=== PATIENT | male | born 1930 | race Caucasian/White ===

== ENCOUNTER 2018-03-03 11:25 | Emergency (ER) | payer OTHER ==
[2018-03-03 11:33] VITALS: BP 116/74
[2018-03-03] MEDS ORDERED: IPRATROPIUM/ALBUTEROL 3 ML DEYVIAL IH ONE (13:02)
--- NOTE | 2018-03-03 13:05 | EDPHY ---
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 Onset of cough 2 weeks ago. He has been treated with 2 different courses of antibiotics in the past 2 weeks, without change in cough. The cough is occasional and is productive of yellowish phlegm. No associated fever. Onset of sore throat yesterday. The sore throat is moderate and increases with swallowing. He also is scheduled to have a dental extraction of a left upper molar in 3 days and is concerned that he may have a dental infection. REVIEW OF SYSTEMS: complete 10 point ROS negative except at noted in the HPI - Personal History Current Tetanus/Diphtheria Vaccine: No Current Tetanus Diphtheria and Acellular Pertussis (TDAP): No - Medical/Surgical History Hx Asthma: No Hx Chronic Respiratory Disease: Yes Hx Diabetes: No Hx Cardiac Disease: No Hx Renal Disease: No Hx Cirrhosis: No Hx Alcoholism: No Hx HIV/AIDS: No Hx Splenectomy or Spleen Trauma: No Other PMH: PMH: PROSTATE CA,(Chemo) GLAUCOMA,EMPHYSEMA,BACK PROBLEMS. PSH: NONE - Social History Smoking Status: Former smoker - Physical Exam Exam: General Appearance: Alert, pleasant, well-appearing Eyes: Pupils equal and round, no conjunctival injection ENT, Mouth: Oral thrush, no gum swelling or dental tenderness Neck: Normal inspection, no adenopathy Respiratory: Scattered expiratory wheezing Cardiovascular: Regular rate and rhythm Gastrointestinal: Abdomen is soft and nontender Neurological: A&O, nonfocal, normal gait Skin: Warm and dry Extremities: Normal inspection Psychiatric: Mood and affect normal Constitutional: Initial Vital Signs Temperature (C) 36.7 C 03/03/18 11:30 Heart Rate 88 03/03/18 11:30 Respiratory Rate 18 03/03/18 11:30 Blood Pressure 116/74 03/03/18 11:30 O2 Sat (%) 89 L 03/03/18 11:30 O2 Delivery Mode Room Air Allergies/Adverse Reactions: No Known Allergies Allergy (Unverified 03/04/18 14:16) Home Medications: Medication Instructions Recorded Brimonidine/Timolol [Combigan (*)] 1 drop RTEYE 1200,2200 04/18/14 Dutasteride [Avodart 0.5 MG (*)] 0.5 mg PO HS 04/18/14 Herbals/Supplements -Info Only 1 ea PO DAILY 04/18/14 Latanoprost 0.005% [Xalatan 0.005% 1 drops EACHEYE HS 04/18/14 (*)] Polyethylene Glycol 3350 [Miralax 17 gm PO DAILY PRN 04/18/14 17 gm (*)] Nicotine Polacrilex [Nicorette gum 4 mg BC PRN PRN 05/21/14 (*)] Nystatin Susp [Mycostatin Oral 5 ml MM Q6 #480 ml 03/03/18 Liquid] Nexium 03/04/18 Medical Decision Making - Diagnostics Imaging Results: CXR: pulmonary fibrosis, no acute infiltrate Imaging: I viewed and interpreted images myself ED Course/Re-evaluation: This patient presents with a productive cough, most likely related to bronchospasm. Oxygen saturation 89% on room air. He is not short of breath and I suspect that this oxygen saturation is in the usual range for him. Chest x-ray reveals pulm fibrosis, no evidence of pneumonia. DuoNeb given. Lungs CTA after duoneb. There is no evidence of dental infection on exam. However he has oral thrush, likely related to recent antibiotics. Rx for albuterol inhaler and nystatin given. f/u PCP. Differential Diagnosis: includes though not limited to pneumonia, dental infection, strep throat, acute hypoxia - Data Points Medications Given: Discontinued Medications Albuterol/Ipratropium (Duoneb) 3 ml IH EDNOW ONE Stop: 03/03/18 13:03 Last Admin: 03/03/18 13:10 Dose: 3 ml Departure - Departure Disposition: Home, Routine, Self-Care Clinical Impression: Bronchospasm with bronchitis, acute, Oral thrush Condition: Good Instructions: Oral Candidiasis (ED), Bronchospasm (ED) Referrals: Bethanie Marvin MD [Primary Care Provider] - 5-7 days, call for appt. Prescriptions: Nystatin Susp [Mycostatin Oral Liquid] 5 ml MM Q6 #480 ml
--- NOTE | 2018-03-03 17:46 | ASDISCHSUM ---
Discharge Information Plan Status:Home with No Needs Medically Cleared to Leave: Discharge Date:03/03/2018 04:06 PM CM D/C Disposition:Home, Routine, Self-Care ADT D/C Disposition:Home, Routine, Self-Care Projected Discharge Date:03/03/2018 04:06 PM Transportation at D/C:Taxicab Discharge Delay Reason: Follow-Up Date:03/03/2018 04:06 PM Discharge Slot: Final Diagnosis: Placement Information Patient Contact Information Contact Name:MAXIMINO Relationship: Address:[address] City:[place] Alternate Phone: [facility]/Zip Code:[place] [address] Email: Financial Information Financial Class:Medicare Primary Plan Desc:MEDICARE OUTPATIENT Primary Plan Number:[id number] Secondary Plan Desc:[facility] Secondary Plan Number:[id number] Assessment Information [facility] CM Progress Note CM Note CM Note Notes: Pt presented to the ED through triage with his , Dominga ([phone]) for difficulty swallowing and having a cough. ED RN alerted CM re: concerns for patient's living situation. Pt lives in private home alone and per Dominga, pt has a habit of hoarding and the house is rather unkempt and possibly unsafe and unsanitary for pt to continue to live in. Dominga said pt also has had frequent falls recently and she is concerned pt can't even get around his house safely. Pt is able to ambulate with a cane. Spoke with pt and Dominga and she said she had to move out of the house for her own health. Dominga says she has been on the wait list for [facility] but hopes to be able to give her spot to [facility] if and when a spot becomes available. Lucien has been very resistant to having people come into his house to assist with cleaning, home care, etc. and only allows her and other close family members into the home. Pt is also very resistant to the idea of moving into an independent or assisted living apartment. Pt's PCP is Dr Bethanie Marvin and he has an appt this upcoming week and has already scheduled a ride through [employer] to get there. This CM to call Dr Marvin's office and relay concerns to the career technical supervisor and/or [employer]. There was mention and concerns for pt's cognitive status and if patient is showing signs of dementia, short term memory loss, etc. This CM called [facility] and filed a report for concerns related to self-neglect and unsafe living conditions. Pt was discharged home in a cab with Beto accompanying him to stop at [facility] and fill his prescriptions first. CM available for further assistance if needed. Date Signed: 03/03/2018 05:44 PM Electronically Signed By:Emerald Foster RN Intervention Information Intervention Type:Adult Protective Services Date of Service:03/03/2018 05:22 PM Patient Type:Emergency Room Staff Member:ELISEO Foster, Emerald Hours:0.25 Discipline:Grade Setter Severity: Comment:Filed report re: concerns for pt's uns afe living environment, hoarding, frequent falls
== END 2018-03-03 16:06 | disposition home or self-care (01) ==
DX: J20.9 Acute bronchitis, unspecified (principal); B37.0 Candidal stomatitis; Z85.46 Personal history of malignant neoplasm of prostate; Z87.891 Personal history of nicotine dependence

== ENCOUNTER 2018-03-04 14:09 | Emergency (ER) | payer OTHER ==
[2018-03-04 14:21] VITALS: BP 131/79
--- NOTE | 2018-03-04 15:16 | EDPHY ---
H & P Time Seen by Provider: 03/04/18 14:56 HPI/ROS: HPI Continued sore throat, history of thrush, seen here yesterday. 87-year-old male by private vehicle. This patient was seen in our emergency department yesterday with complaint of sore throat and continued cough. He had developed thrush secondary to multiple courses of antibiotics to treat an ongoing chronic cough. His chest x-ray did not show evidence of pneumonia or other acute pathology. He was prescribed nystatin for his thrush and discharged with instructions to follow up with his primary care physician early this coming week. He presents back to the emergency department concerned that the nystatin mouthwash has not been working. He states that he thinks he had a fever of 100.7 this morning which then dropped to 100.2. He call the office of his primary care physician, Dr. Marvin and was told to come to the emergency department to be evaluated. ROS: Constitutional: As above, no chills. No weakness. Eyes: No discharge. No changes in vision. ENT: As above. No nasal congestion or rhinorrhea. Respiratory: As above. No shortness of breath. Cardiac: No chest pain, no palpitations. Gastrointestinal: No abdominal pain, no vomiting, no diarrhea. Genitourinary: No hematuria. No dysuria or increased frequency with urination. Musculoskeletal: No back pain. No neck pain. No myalgias or arthralgias. Skin: No rashes. Neurological: No headache. No focal weakness or altered sensation. Past medical history: Prostate cancer with chemotherapy, glaucoma, chronic back problems, emphysema. Social history: He is . Currently here by himself. Former smoker. Physical Exam: General Appearance: Alert, no distress. This patient is responding to questions appropriately and in full sentences. This patient appears well- hydrated and well-nourished. Eyes: Pupils equal and round no pallor or injection. No lid edema, erythema or injection. ENT, Mouth: Mucous membranes are moist. Oral thrush present. Mild diffuse pharyngeal erythema. No significant edema or swelling. No asymmetry suggestive of abscess. No exudates. No voice changes. No stridor. Respiratory: There are no retractions, lungs are clear to auscultation with good air movement bilaterally. Cardiovascular: Regular rate and rhythm. Holosystolic murmur with intermittent PVCs or PACs. Gastrointestinal: Abdomen is soft and nontender, no masses, bowel sounds normal. No focal tenderness at McBurney's point. No Deluna sign. Neurological: Motor sensory function is grossly intact. Cranial nerves are normal. Gait is baseline. He ambulates with a cane. Skin: Warm and dry, no rashes. Musculoskeletal: Neck is supple and nontender. Extremities are symmetrical. All joints range without pain or impingement. Psychiatric: No agitation. No depression. Database: EKG: Imaging: Procedures: Emergency department course: Medical records from his visit yesterday were reviewed. His lab work from visits to the [facility] were reviewed. Vital signs at this time are normal. He is afebrile. I explained to him that he needed to give the nystatin mouthwash more time to work. He does feel comfortable going home. He is asking for a medication for his sore throat. I will withhold steroids at this time secondary to the thrush and the potential for immune suppression. He declines narcotic pain medications. He states that he can take NSAIDs but does not do so frequently. He was given 600 mg of ibuprofen in the emergency department. He has a normal creatinine from January. Denies any history of peptic ulcer disease. I have instructed him on high-dose ibuprofen for the next 3 days only to be taken with meals. He has been instructed to continue his nystatin mouthwash to treat his thrush. He has been instructed to follow up with his primary care physician on Monday for re-evaluation. Return to emergency department precautions were thoroughly discussed with him. All of his questions were answered. He was discharged from the emergency department in good condition. Differential Diagnosis: The differential diagnosis on this patient includes but is not limited to thrush , chronic bronchitis, pharyngitis. Streptococcal pharyngitis, pneumonia, serious bacterial infection unlikely. This represents a partial list of diagnoses considered. These considerations are based on history, physical exam , past history, reassessment and diagnostic testing. Smoking Status: Former smoker Constitutional: Initial Vital Signs Temperature (C) 36.9 C 03/04/18 14:18 Heart Rate 84 03/04/18 14:18 Respiratory Rate 16 03/04/18 14:18 Blood Pressure 131/79 H 03/04/18 14:18 O2 Sat (%) 94 03/04/18 14:18 O2 Delivery Mode Room Air Allergies/Adverse Reactions: No Known Allergies Allergy (Unverified 03/04/18 14:16) Home Medications: Medication Instructions Recorded Brimonidine/Timolol [Combigan (*)] 1 drop RTEYE 1200,2200 04/18/14 Dutasteride [Avodart 0.5 MG (*)] 0.5 mg PO HS 04/18/14 Herbals/Supplements -Info Only 1 ea PO DAILY 04/18/14 Latanoprost 0.005% [Xalatan 0.005% 1 drops EACHEYE HS 04/18/14 (*)] Polyethylene Glycol 3350 [Miralax 17 gm PO DAILY PRN 04/18/14 17 gm (*)] Nicotine Polacrilex [Nicorette gum 4 mg BC PRN PRN 05/21/14 (*)] Nystatin Susp [Mycostatin Oral 5 ml MM Q6 #480 ml 03/03/18 Liquid] Nexium 03/04/18 Departure - Departure Disposition: Home, Routine, Self-Care Clinical Impression: Thrush, oral, Chronic bronchitis, Pharyngitis Condition: Good Instructions: Oral Candidiasis (ED), Pharyngitis (ED) Additional Instructions: Read and follow provided instructions. Follow-up with your primary care physician on Monday of this week as discussed. Take medication as prescribed for oral thrush. Ibuprofen dosin mg every 6 hours with meals for the next 3 days only. Take only as needed for pain. Ask your pharmacist for Advil liquid gels. You will take 3 of these 200 mg tablets at a time. Return to the emergency department without hesitation for worsening symptoms, persistent fever, worsening sore throat, any difficulty breathing or worsening cough or other serious concerns. Referrals: Bethanie Marvin MD [Primary Care Provider] - As per Instructions
== END 2018-03-04 15:00 | disposition home or self-care (01) ==
DX: J02.9 Acute pharyngitis, unspecified (principal); B37.0 Candidal stomatitis; J42 Unspecified chronic bronchitis; Z85.46 Personal history of malignant neoplasm of prostate; Z87.891 Personal history of nicotine dependence

== ENCOUNTER 2018-05-03 16:31 | Emergency (ER) | payer OTHER ==
--- NOTE | 2018-05-03 18:24 | EDPHY ---
HPI/HX/ROS/PE/MDM Narrative: CHIEF COMPLAINT: Swollen right leg HISTORY OF PRESENT ILLNESS: The patient is an 88 y/o male complaining of right leg swelling. He is being treated at the wound clinic for a wound on the front of his right calf. The wound was dressed but this morning, he noticed that it was more difficult to remove the tight pants he wears to sleep. He denies fevers, chills, shortness of breath or any other associated symptoms. No fever, chills, chest pain, shortness of breath, palpitations, vomiting, diarrhea, urinary complaints, headache, lightheadedness. REVIEW OF SYSTEMS: Aside from elements discussed in the HPI, a comprehensive 10-point review of systems was reviewed and is negative. PAST MEDICAL HISTORY: Prostate cancer, glaucoma, emphysema SOCIAL HISTORY: Lives in [place], , retired VITAL SIGNS: Reviewed by me GENERAL: Well-developed, well-nourished, resting comfortably in no respiratory distress. Alert, pleasant, conversive. HEENT: Atraumatic. Normal to visual inspection EXTREMITIES: 3cm open abrasion to the front of the right stone with granulation tissue. Surrounding erythema. No edema, no warmth, no active bleeding. Range of motion is normal throughout. Calf compartment is soft. Negative Homans. NEURO: Alert and oriented. SKIN: Warm and dry, no rash. PSYCHIATRIC: Normal mentation, no agitation. ED Course: Ultrasound: Right leg ultrasound was obtained. The radiologist interpretation is negative for DVT. I discussed the ultrasound findings with the patient. The patient presents with a swollen right leg. He has an open abrasion with surrounding erythema. On exam, it is not warm or swollen. Plan for ultrasound of the right leg. 8:00 PM - Ultrasound does not show DVT. This patient can safely follow up with the wound clinic. He agrees to this course of action. MDM: Differential diagnosis for the patient's primary complaint of leg swelling was considered including but not limited to cellulitis, hypoalbuminemia, congestive heart failure, cor pulmonale, chronic venous stasis and DVT. - Data Points Imaging Results: Imaging Impressions Extremity Venous Study 05/03/18 18:02 Impression: Negative for right lower extremity DVT. Findings and recommendations discussed with Mackenzie Hollingsworth MD at 1940 hour, . Imaging: Discussed imaging studies w/ call center agent Radiologist General Time Seen by Provider: 05/03/18 18:00 Initial Vital Signs: Initial Vital Signs Temperature (C) 36.5 C 05/03/18 16:41 Heart Rate 80 05/03/18 16:41 Respiratory Rate 16 05/03/18 16:41 Blood Pressure 163/92 H 05/03/18 16:41 O2 Sat (%) 93 05/03/18 16:41 O2 Delivery Mode Room Air Allergies/Adverse Reactions: No Known Allergies Allergy (Verified 05/03/18 16:40) Home Medications: Medication Instructions Recorded Brimonidine/Timolol [Combigan (*)] 1 drop RTEYE 1200,2200 04/18/14 Dutasteride [Avodart 0.5 MG (*)] 0.5 mg PO HS 04/18/14 Herbals/Supplements -Info Only 1 ea PO DAILY 04/18/14 Latanoprost 0.005% [Xalatan 0.005% 1 drops EACHEYE HS 04/18/14 (*)] Polyethylene Glycol 3350 [Miralax 17 gm PO DAILY PRN 04/18/14 17 gm (*)] Nicotine Polacrilex [Nicorette gum 4 mg BC PRN PRN 05/21/14 (*)] Nystatin Susp [Mycostatin Oral 5 ml MM Q6 #480 ml 03/03/18 Liquid] Nexium 03/04/18 Departure - Departure Disposition: Home, Routine, Self-Care Clinical Impression: Right leg swelling Condition: Good Instructions: Leg Edema (ED) Additional Instructions: 1. Please follow up with the wound care as directed. 2. Use acetaminophen as directed on the label for pain if desired. 3. Return to the emergency department for any worsening of condition. Referrals: Bethanie Marvin MD [Primary Care Provider] - As per Instructions Report Scribed for: Mackenzie Hollingsworth Report Scribed by: Eveline Vieira Date of Report: 05/03/18 Time of Report: 18:27 Physician Review and Approval Statement: Portions of this note were transcribed by a medical intern. I personally performed a history, physical exam, medical decision making, and confirmed accuracy of information the transcribed note.
[2018-05-03 20:16] VITALS: BP 135/85
== END 2018-05-03 20:16 | disposition home or self-care (01) ==
DX: R22.41 Localized swelling, mass and lump, right lower limb (principal); Z85.46 Personal history of malignant neoplasm of prostate

== ENCOUNTER → 2018-05-24 | Outpatient (CLI) | payer OTHER | LOC: FIMAGING 12:51 | PROVIDERS: ATTEND Internal Medicine Hematology & Oncology | DX: R91.1 Solitary pulmonary nodule (principal); I51.7 Cardiomegaly ==

== ENCOUNTER 2018-07-04 14:31 | Emergency (ER) | payer OTHER ==
[2018-07-04 14:40] VITALS: BP 133/74
--- NOTE | 2018-07-04 15:03 | EDPHY ---
H & P Stated Complaint: pain in mouth Time Seen by Provider: 07/04/18 14:50 HPI/ROS: CHIEF COMPLAINT: Painful sore in mouth HISTORY OF PRESENT ILLNESS: The patient is an 88-year-old man who comes to the emergency department complaining of a painful sore on the mucosal aspect of his right cheek. He states that it is been present for about 2 weeks. It only bothers him when he salty foods. It does not bother him at baseline. He does not remember biting it or other specific trauma. No swelling or erythema. No drainage. Patient states that his symptoms are similar to last year when he had a candidal infection in his mouth after taking antibiotics. He has not had antibiotics recently. Severity: Mild Modifying factors: Salty food REVIEW OF SYSTEMS: Constitutional: denies: chills, fever, recent illness, recent injury EENTM: See HPI Respiratory: denies: cough, shortness of breath Cardiac: denies: chest pain, irregular heart rate, lightheadedness, palpitations Gastrointestinal/Abdominal: denies: abdominal pain, diarrhea, nausea, vomiting, blood streaked stools Genitourinary: denies: dysuria, frequency, hematuria, pain Musculoskeletal: denies: joint pain, muscle pain Skin: denies: lesions, rash, jaundice, bruising Neurological: denies: headache, numbness, paresthesia, tingling, dizziness, weakness Hematologic/Lymphatic: denies: blood clots, easy bleeding, easy bruising Immunologic/allergic: denies: HIV/AIDS, transplant 10 systems reviewed and negative except as noted EXAM: GENERAL: Well-appearing, well-nourished and in no acute distress. HEAD: Atraumatic, normocephalic. EYES: Pupils equal round and reactive to light, extraocular movements intact, sclera anicteric, conjunctiva are normal. ENT: TMs normal, nares patent, small linear wound to right anterior cheek appears consistent with oral trauma such as biting your cheek. NECK: Normal range of motion, supple without lymphadenopathy or JVD. LUNGS: Breath sounds clear to auscultation bilaterally and equal. No wheezes rales or rhonchi. HEART: Regular rate and rhythm without murmurs, rubs or gallops. ABDOMEN: Soft, nontender, normoactive bowel sounds. No guarding, no rebound. No masses appreciated. BACK: No CVA tenderness, no spinal tenderness, step-offs or deformities EXTREMITIES: Normal range of motion, no pitting or edema. No clubbing or cyanosis. NEUROLOGICAL: Cranial nerves II through XII grossly intact. Normal speech, normal gait. 5/5 strength, normal movement in all extremities, normal sensation , normal reflexes PSYCH: Normal mood, normal affect. SKIN: Warm, dry, normal turgor, no visible rashes or lesions. Source: Patient Exam Limitations: No limitations - Personal History Current Tetanus/Diphtheria Vaccine: Unsure Current Tetanus Diphtheria and Acellular Pertussis (TDAP): Unsure - Medical/Surgical History Hx Asthma: No Hx Chronic Respiratory Disease: Yes Hx Diabetes: No Hx Cardiac Disease: No Hx Renal Disease: No Hx Cirrhosis: No Hx Alcoholism: No Hx HIV/AIDS: No Hx Splenectomy or Spleen Trauma: No Other PMH: PMH: PROSTATE CA,(Chemo) GLAUCOMA,EMPHYSEMA,BACK PROBLEMS. PSH: NONE - Family History Significant Family History: No pertinent family hx - Social History Smoking Status: Former smoker Alcohol Use: None Constitutional: Initial Vital Signs Temperature (C) 37 C 07/04/18 14:37 Heart Rate 73 07/04/18 14:37 Respiratory Rate 16 07/04/18 14:37 Blood Pressure 133/74 H 07/04/18 14:37 O2 Sat (%) 96 07/04/18 14:37 O2 Delivery Mode Room Air Allergies/Adverse Reactions: No Known Allergies Allergy (Verified 07/04/18 14:36) Home Medications: Medication Instructions Recorded Brimonidine/Timolol [Combigan (*)] 1 drop RTEYE 1200,2200 04/18/14 Dutasteride [Avodart 0.5 MG (*)] 0.5 mg PO HS 04/18/14 Herbals/Supplements -Info Only 1 ea PO DAILY 04/18/14 Latanoprost 0.005% [Xalatan 0.005% 1 drops EACHEYE HS 04/18/14 (*)] Polyethylene Glycol 3350 [Miralax 17 gm PO DAILY PRN 04/18/14 17 gm (*)] Nicotine Polacrilex [Nicorette gum 4 mg BC PRN PRN 05/21/14 (*)] Nexium 03/04/18 Medical Decision Making ED Course/Re-evaluation: This does not look like a candidal infection on exam. It looks like mild oral trauma however it is been present for 2 weeks. I offered to treat with nystatin for now but recommended he follow up with oral surgery in the next few days to be evaluated for oral cancer. He does have a history of smoking. Patient just came from the ENTs office Dr. Huntley up stairs where she was looking at his ears. He and his son feel that they will be able to get back up to Dr. Huntley's office right now and have her take a look in his mouth. They declined prescriptions or further workup at this time. Differential Diagnosis: Partial list of the Differential diagnosis considered include but were not limited to; oral trauma, candidiasis, oral cancer and although unlikely based on the history and physical exam, I also considered salivary gland stone, abscess, dental infection. I discussed these differential diagnoses and the plan with the patient as well as the usual and expected course. The patient understands that the diagnosis is provisional and that in medicine we are not always correct and that further workup is often warranted. Usual and customary warnings were given. All of the patient's questions were answered. The patient was instructed to return to the emergency department should the symptoms at all worsen or return, otherwise to followup with the physician as we discussed. Departure - Departure Disposition: Home, Routine, Self-Care Clinical Impression: Ulcer (traumatic) of oral mucosa Condition: Fair Instructions: Mouth Care (ED) Referrals: Bethanie Marvin MD [Primary Care Provider] - As per Instructions Subha Carpenter MD [Medical Doctor] - 2-3 days, call for appt.
== END 2018-07-04 15:32 | disposition home or self-care (01) ==
DX: K12.1 Other forms of stomatitis (principal); Z85.46 Personal history of malignant neoplasm of prostate

== ENCOUNTER 2018-08-08 14:41 | Inpatient (IN) | payer OTHER ==
[2018-08-08] MEDS ORDERED: ACETAMINOPHEN 325 MG TAB PO ONE (16:33)
--- NOTE | 2018-08-08 17:00 | EDPHY ---
H & P Stated Complaint: R leg possible infection Time Seen by Provider: 08/08/18 16:32 HPI/ROS: CHIEF COMPLAINT: Cellulitis HISTORY OF PRESENT ILLNESS: 88-year-old male presents with right lower extremity cellulitis. He is being followed in wound care for a right lower extremity open wound. Last night he developed a low-grade fever of 99.8, associated with increasing right lower extremity pain. No other associated symptoms. He was seen in [facility] just prior to arrival and had obvious cellulitis. The wound was debrided and bandaged by Dr. Ayala. He presents now for admission and IV antibiotics. He originally injured his right lower extremity after a fall several months ago. REVIEW OF SYSTEMS: complete 10 point ROS reviewed and is negative except for the noted elements in the HPI - Personal History Current Tetanus/Diphtheria Vaccine: Yes Current Tetanus Diphtheria and Acellular Pertussis (TDAP): Yes - Medical/Surgical History Hx Asthma: No Hx Chronic Respiratory Disease: Yes Hx Diabetes: No Hx Cardiac Disease: No Hx Renal Disease: No Hx Cirrhosis: No Hx Alcoholism: No Hx HIV/AIDS: No Hx Splenectomy or Spleen Trauma: No Other PMH: PMH: PROSTATE CA,(Chemo) GLAUCOMA,EMPHYSEMA,BACK PROBLEMS. PSH: NONE - Social History Smoking Status: Former smoker - Physical Exam Exam: General Appearance: Alert, pleasant, nontoxic-appearing Eyes: Pupils equal and round, no conjunctival pallor ENT, Mouth: Mucous membranes moist Neck: Normal inspection Respiratory: Lungs are clear to auscultation Cardiovascular: Regular rate and rhythm Gastrointestinal: Abdomen is soft and nontender Neurological: A&O, nonfocal, normal gait Skin: Warm and dry Extremities: Right lower leg is bandaged, erythema extends proximally on the anterior aspect of the lower leg Psychiatric: Mood and affect normal Constitutional: Initial Vital Signs Temperature (C) 37.9 C 08/08/18 14:48 Heart Rate 107 H 08/08/18 14:48 Respiratory Rate 16 08/08/18 14:48 Blood Pressure 102/58 L 08/08/18 14:48 O2 Sat (%) 92 08/08/18 14:48 O2 Delivery Mode Room Air Allergies/Adverse Reactions: No Known Allergies Allergy (Verified 08/08/18 14:48) Home Medications: Medication Instructions Recorded Brimonidine/Timolol [Combigan (*)] 1 drop LEFTEYE DAILY 04/18/14 Herbals/Supplements -Info Only 1 ea PO DAILY 04/18/14 Latanoprost 0.005% [Xalatan 0.005% 1 drops EACHEYE HS 04/18/14 (*)] Polyethylene Glycol 3350 [Miralax 17 gm PO DAILY PRN 04/18/14 17 gm (*)] Nicotine Polacrilex [Nicorette gum 4 mg BC PRN PRN 05/21/14 (*)] Finasteride [Proscar 5 MG (*)] 5 mg PO HS 08/08/18 Medical Decision Making ED Course/Re-evaluation: This patient presents with cellulitis of the right lower extremity. I did not remove the bandage since he was just seen by wound care and Dr. Ayala. I reviewed a a photograph taken in the wound care clinic and it reveals obvious cellulitis. Does not meet SIRS criteria. Blood cultures were drawn and Ancef 1 g IV given for cellulitis. The hospitalist service was consulted for admission. Differential Diagnosis: Differential diagnosis includes though it is not limited to osteomyelitis, necrotizing fasciitis, abscess, neurovascular compromise. - Data Points Medications Given: Discontinued Medications Acetaminophen (Tylenol) 650 mg PO EDNOW ONE Stop: 08/08/18 16:34 Last Admin: 08/08/18 17:23 Dose: 650 mg Cefazolin Sodium/Dextrose (Ancef 1 Gm (Premix)) 50 mls @ 200 mls/hr IV EDNOW ONE PRN Reason: Protocol Stop: 08/08/18 17:10 Last Admin: 08/08/18 17:22 Dose: 50 mls Departure - Departure Disposition: [facility] Inpatient Acute Clinical Impression: Cellulitis Qualifiers: Site of cellulitis: extremity Site of cellulitis of extremity: lower extremity Laterality: right Qualified Code(s): L03.115 - Cellulitis of right lower limb Condition: Fair
[2018-08-08 17:23] LABS: PLATELET COUNT 169 10^3/uL (150-400)
[2018-08-08] MEDS ORDERED: ACETAMINOPHEN 325 MG TAB PO PRN (18:13)
[2018-08-08] MEDS ORDERED: oxyCODONE IR 5 MG TAB PO PRN (18:13)
[2018-08-08] MEDS ORDERED: HYDROmorphONE/DILAUDID 1 MG/ML INJ IVP PRN (18:13)
[2018-08-08] MEDS ORDERED: ONDANSETRON DISINTEGRATING 4 MG TAB PO PRN (18:13)
[2018-08-08] MEDS ORDERED: ONDANSETRON 4 MG/2 ML VIAL IVP PRN (18:13)
[2018-08-08] MEDS ORDERED: PROMETHAZINE HCL 25 MG/ML INJ IVP PRN (18:13)
[2018-08-08] MEDS ORDERED: NICOTINE POLACRILEX 2 MG GUM B PRN (18:13)
[2018-08-08] MEDS ORDERED: HYDROCODONE/APAP 5/325 TAB PO PRN (18:13)
[2018-08-08] MEDS ORDERED: POLYETHYLENE GLYCOL 3350 17 GM PKT PO PRN (18:15)
[2018-08-08] MEDS: LATANOPROST 0.005% 2.5 ML OPHT DROPS EACHEYE SCH (21:13)
[2018-08-08] MEDS: FINASTERIDE 5 MG TAB PO SCH (21:13)
--- NOTE | 2018-08-08 21:27 | PDGENHP ---
History and Physical - Chief Complaint leg wounds - History of Present Illness 88 yo M with PMH of COPD, CAD, prostate and lung cancer presenting with worsening RLE wounds and associated cellulitis. Patient has been followed closely at the wound clinc for chronic BLE venous stasis wounds, and in discussion with Dr. Dasilva the wounds had been stable and even appearing to heal progressively until this week when they were noted to be increasingly red and weeping on the right lower extremity. He was sent to the ER for further evaluation. At the time of my evaluation, he notes he has had low grade fever at home up to 99.8 which is unusual for him. He has not had rigors or shaking chills. He has not had cp, sob, n/v/d or other associated sxs. He notes that leg is not very painful and that this has happened in the past as well when the wounds are infected. He does not believe he did anything different in terms of care of the wound and has been compliant with dressing changes etc. History Information - Allergies/Home Medication List Allergies/Adverse Reactions: No Known Allergies Allergy (Verified 08/08/18 14:48) Home Medications: Brimonidine/Timolol [Combigan (*)] 1 drop LEFTEYE DAILY 04/18/14 [Last Taken ] Herbals/Supplements -Info Only 1 ea PO DAILY 04/18/14 [Last Taken 08/08/18] Latanoprost 0.005% [Xalatan 0.005% (*)] 1 drops EACHEYE HS 04/18/14 [Last Taken 08/07/18] Polyethylene Glycol 3350 [Miralax 17 gm (*)] 17 gm PO DAILY PRN 04/18/14 [Last Taken 08/07/18] Nicotine Polacrilex [Nicorette gum (*)] 4 mg BC PRN PRN 05/21/14 [Last Taken Unknown] Finasteride [Proscar 5 MG (*)] 5 mg PO HS 08/08/18 [Last Taken 08/07/18] I have personally reviewed and updated: family history, medical history, social history, surgical history - Past Medical History coronary artery disease, cancer (prostate and lung), COPD, GERD Additional medical history: spinal stenosis. ILD. glaucoma. venous stasis ulcers - Surgical History Reports: no pertinent surgical hx - Family History Positive for: non-pertinent - Social History Smoking Status: Former smoker Alcohol Use: Rarely Drug Use: None Review of Systems Review of Systems: ROS: 10pt was reviewed & negative except for what was stated in HPI & below Physical Exam Physical Exam: Temp Pulse Resp BP Pulse Ox 36.5 C 90 16 122/85 H 90 L 08/08/18 20:13 08/08/18 20:13 08/08/18 20:13 08/08/18 20:13 08/08/18 20:13 O2 (L/minute) 1 Constitutional: no apparent distress, chronically ill appearing Eyes: PERRL, anicteric sclera Ears, Nose, Mouth, Throat: moist mucous membranes, hearing normal, poor dentition Cardiovascular: regular rate and rhythym, No edema Respiratory: no respiratory distress, no rales or rhonchi, clear to auscultation Gastrointestinal: normoactive bowel sounds, soft, non-tender abdomen Genitourinary: no bladder tenderness Skin: erythema (to mid calf), other (weeping wound) Musculoskeletal: no muscle tenderness Neurologic: AAOx3 Psychiatric: interacting appropriately, not anxious, not encephalopathic Lab Data & Imaging Review 08/08/18 17:02 08/08/18 17:02 WBC 10.54 10^3/uL (3.80-9.50) H 08/08/18 17:02 RBC 4.40 10^6/uL (4.40-6.38) 08/08/18 17:02 Hgb 14.2 g/dL (13.7-17.5) 08/08/18 17:02 Hct 41.3 % (40.0-51.0) 08/08/18 17:02 MCV 93.9 fL (81.5-99.8) 08/08/18 17:02 MCH 32.3 pg (27.9-34.1) 08/08/18 17:02 MCHC 34.4 g/dL (32.4-36.7) 08/08/18 17:02 RDW 12.9 % (11.5-15.2) 08/08/18 17:02 Plt Count 169 10^3/uL (150-400) 08/08/18 17:02 MPV 9.9 fL (8.7-11.7) 08/08/18 17:02 Neut % (Auto) 84.5 % (39.3-74.2) H 08/08/18 17:02 Lymph % (Auto) 6.9 % (15.0-45.0) L 08/08/18 17:02 [place] % (Auto) 7.1 % (4.5-13.0) 08/08/18 17:02 Eos % (Auto) 0.8 % (0.6-7.6) 08/08/18 17:02 Baso % (Auto) 0.4 % (0.3-1.7) 08/08/18 17:02 Nucleat RBC Rel Count 0.0 % (0.0-0.2) 08/08/18 17:02 Absolute Neuts (auto) 8.91 10^3/uL (1.70-6.50) H 08/08/18 17:02 Absolute Lymphs (auto) 0.73 10^3/uL (1.00-3.00) L 08/08/18 17:02 Absolute Monos (auto) 0.75 10^3/uL (0.30-0.80) 08/08/18 17:02 Absolute Eos (auto) 0.08 10^3/uL (0.03-0.40) 08/08/18 17:02 Absolute Basos (auto) 0.04 10^3/uL (0.02-0.10) 08/08/18 17:02 Absolute Nucleated RBC 0.00 10^3/uL (0-0.01) 08/08/18 17:02 Immature Gran % 0.3 % (0.0-1.1) 08/08/18 17:02 Immature Gran # 0.03 10^3/uL (0.00-0.10) 08/08/18 17:02 VBG Lactic Acid 1.7 mmol/L (0.7-2.1) 08/08/18 17:35 Sodium 134 mEq/L (135-145) L 08/08/18 17:02 Potassium 4.3 mEq/L (3.3-5.0) 08/08/18 17:02 Chloride 99 mEq/L (97-110) 08/08/18 17:02 Carbon Dioxide 22 mEq/l (22-31) 08/08/18 17:02 Anion Gap 13 mEq/L (6-14) 08/08/18 17:02 BUN 18 mg/dL (7-23) 08/08/18 17:02 Creatinine 1.2 mg/dL (0.7-1.3) 08/08/18 17:02 Estimated GFR 57 08/08/18 17:02 Glucose 114 mg/dL (70-100) H 08/08/18 17:02 Calcium 9.1 mg/dL (8.5-10.4) 08/08/18 17:02 Assessment & Plan Assessment: Cellulitis (Acute) 88 yo M with PMH of copd, cad and chronic venous stasis ulcers followed at wound clinic presenting with RLE cellulitis # RLE cellulitis: in the setting of underlying chronic venous stasis and chronic wounds, he has been seen by Dr. Ayala and Dr. Purvis and plan for now is to monitor with ancef in house, continued wound care. He is non toxic appearing and having relatively little systemic sxs at this time. # leukocytosis: in the setting of above and related to same, not currently meeting other sirs criteria, lactate wnl, will trend # COPD: without e/o acute exacerbation at this time, will monitor, continue home medications # hypoxia: mild 89-90% on RA, with underlying copd, ILD and lung cancer, will continue to monitor but suspect this is baseline # prostate cancer/lung cancer: followed by [facility], not contributing to acute presentation # CAD: without c/o chest pain or other sxs suggestive of acute issues, continue op medications # IP status, will require > 48 hours stay for eval/mgmt of above given severity of cellulitis sxs Patient new to my care. Old records reviewed and summarized as above, care plan reviewed with ER doctor, Dr. Ayala and DR. Purvis as above.
--- NOTE | 2018-08-08 21:39 | GCON ---
INFECTIOUS DISEASE CONSULTATION DATE OF CONSULTATION: 08/08/2018 REFERRING PHYSICIAN: Jessica Ayala MD REASON FOR CONSULTATION: Right lower extremity cellulitis. HISTORY OF PRESENT ILLNESS: The patient is an 88-year-old male with a past medical history of right lower extremity venous insufficiency and ulceration, as well as skin tear to the right lower extremit y sustained over the summer, who I am asked to see in consultation for a right lower extremity cellul itis. The patient notes that his wound had become progressively worse over the last few days, and enamorado d increasing redness associated with the right lower leg. Yesterday, he described a temperature in t he low 99-degree range. Today, this was around 99.6. He did not have chills or feel ill. He was ev aluated by Dr. Ayala and noted to have erythema around his wounds consistent with cellulitis promptin g his hospital admission. Cultures obtained in 2017 from a wound showed MSSA. The patient does not have any pain in his right thigh or inguinal region. He has not experienced nausea, vomiting, or ira rrhea. He denies recent antibiotic exposure. Evaluation in the emergency department revealed a whit e count of 10.5 with a left shift. He has been having [facility] w ith compression wraps. Given the above findings, I am now asked to assist in his ongoing management. PAST MEDICAL HISTORY: Prostate cancer, spinal stenosis, chronic venous insufficiency, skin tear to r ight lower extremity, emphysema, glaucoma. PAST SURGICAL HISTORY: Recent debridement of right lower extremity wound. CURRENT MEDICATIONS: Cefazolin 1 g IV x1, Lovenox 40 mg subcu daily, Mchenry as needed for pain, Prosc ar 5 mg p.o. at bedtime, Nicorette as needed, OxyIR as needed. ALLERGIES: Horse serum. SOCIAL HISTORY: Patient quit smoking many years ago. He continues to use Nicorette gum. Drinks alc ohol occasionally. No drug use history. FAMILY HISTORY: Noncontributory. REVIEW OF SYSTEMS: Outside that noted in the HPI, the remainder of a 10-system review is unremarkabl e. PHYSICAL EXAMINATION: VITAL SIGNS: Temperature 37.9, heart rate 86, respiratory rate 18, blood pres sure 119/60, oxygen saturation 92% on room air. GENERAL: Patient is well nourished and well develop ed, in no acute distress. He appears nontoxic. HEENT: There is no scleral icterus, conjunctival in jection, or conjunctival petechiae. Oropharynx shows moist mucous membranes with dentition in poor r epair. There is no nasal discharge. There is no tenderness over the sinuses. NECK: Supple without palpable lymphadenopathy or thyromegaly. CHEST: There are bilateral expiratory wheezes present. T here is occasional paroxysm of cough. CARDIOVASCULAR: Regular rate and rhythm without murmurs, gall ops, or rubs. ABDOMEN: Soft, nontender, nondistended. There is a palpable mass in the left upper q uadrant, which appears consistent with a lipoma. Bowel sounds are present. MUSCULOSKELETAL: Right lower extremity shows chronic venous insufficiency changes. There are several wounds over the anteri or stone with clean base and some fibrinous slough. There is erythema surrounding the wound bed exten ding proximally to below the knee with warmth and mild tenderness. There is a small wound over the r ight lateral foot with surrounding erythema. LYMPHATICS: No cervical or supraclavicular nodes. No lymphangitis in the right thigh or inguinal adenopathy. NEUROLOGIC: Patient is alert and interacts appropriately with the examiner. Cranial nerves 2 through 12 are grossly intact. Sensation is gross ly intact. Muscle tone and bulk are normal. SKIN: See musculoskeletal exam. No stigmata of endoca rditis. Skin is warm and dry to touch. LABORATORY DATA: White blood cell count 10.5, hematocrit 41.3, platelets 169, neutrophils 85%. Seru m creatinine 1.2, glucose 114, blood cultures x2 are pending. IMPRESSION: Right lower extremity cellulitis with chronic wounds over anterior stone after skin tear, with underlying venous insufficiency. Appearance most suggestive of beta-hemolytic streptococci, al though Staphylococcus aureus also a consideration. Chronic wounds do raise issue of potential for mo re mixed infection. Given clinical appearance and prior isolation of MSSA, will proceed with use of cefazolin and follow clinical response to above measures. RECOMMENDATIONS: 1. Cefazolin 1 g IV q.8 hours. 2. Elevate right lower extremity on 2 pillows. 3. Continue local wound care under supervision of Dr. Ayala. 4. Follow up blood cultures as available. 5. Follow clinical response to above measures over time. Thank you for this consultation. We will continue to follow the patient with you. /[id number]/MODL
[2018-08-09 05:06] LABS: PLATELET COUNT 159 10^3/uL (150-400)
[2018-08-09] MEDS ORDERED: CEPACOL LOZENGE PO PRN (06:09)
[2018-08-09] MEDS ORDERED: BISACODYL 10 MG SUPP PR PRN (06:10)
[2018-08-09] MEDS ORDERED: POLYETHYLENE GLYCOL 3350 17 GM PKT PO PRN (06:10)
[2018-08-09] MEDS ORDERED: MAGNESIUM HYDROXIDE 30 ML UDCUP PO PRN (06:10)
[2018-08-09] MEDS: ENOXAPARIN 40 MG/0.4 ML SYR SC SCH (08:55)
[2018-08-09] MEDS: SENNOSIDES/DOCUSATE SODIUM TAB PO SCH ×2 (08:55→20:31)
[2018-08-09] MEDS: BRIMONIDINE/TIMOLOL 5 ML OPHT.BTL LEFTEYE SCH (08:56)
--- NOTE | 2018-08-09 08:56 | SOAPPROG ---
SOAP Progress Note Assessment/Plan: Assessment: 88 year old w history of venous insufficiency and fall admitted yesterday for worsening cellulitus. (My full note is on the wound healing center visit 2017) I debrided the wounds yesterday. Will not likely need continued debridement Wound care Ancef Will follow S: Concerned that he had no idea that he was going to spend the night in the hospital and came unprepared. Overall feeling a touch better O: I did not take down the dressing but the erythema on the RLE is better defined and not spreading. Although darker, the streaks closer to his knee have resolved Plan: 08/09/18 08:55 08/09/18 09:02 Objective: Vital Signs Temp Pulse Resp BP Pulse Ox 36.5 C 84 18 119/63 92 08/09/18 08:00 08/09/18 08:00 08/09/18 08:00 08/09/18 08:00 08/09/18 08:00 Laboratory Results 08/09/18 04:42 08/09/18 04:42 08/08/18 08/09/18 08/10/18 05:59 05:59 05:59 Intake Total 400 Balance 400 ICD10 Worksheet Patient Problems: Problems Problem Status Onset Cellulitis Acute Bradycardia Acute
--- NOTE | 2018-08-09 12:28 | PCMIDPN ---
Assessment/Plan: # Right lower extremity cellulitis: Significant recession of erythema based on comparison to pictures. White count normalized. Clinical appearance most suggestive of Streptococcus --continue Ancef overnight --hope to transition to p.o. Tomorrow --continue elevation # venous insufficiency with chronic lower extremity wounds: Dr. Brown sutherland debrided wounds. Medication Cefazolin 1 g IV Q 8 Micro 08/08 blood cultures (2) pending Subjective: Patient reports decreased pain associated with his right foot. Denies side effects related to antibiotics, no diarrhea, itching, rash Objective: Vital Signs Temp Pulse Resp BP Pulse Ox 36.5 C 96 16 131/68 H 91 L 08/09/18 12:06 08/09/18 12:06 08/09/18 12:06 08/09/18 12:06 08/09/18 12:06 Laboratory Results 08/09/18 04:42 08/09/18 04:42 08/08/18 08/09/18 08/10/18 05:59 05:59 05:59 Intake Total 400 Balance 400 - Physical Exam General Appearance: alert, no apparent distress, non-toxic EENT: poor dentition, No thrush Respiratory: lungs clear, No accessory muscle use Cardiac/Chest: regular rate, rhythm Extremities: swelling (Mild bilateral lower extremity swelling right greater than left), erythema (Right: Faint erythema tracking anterior stone with significant recession from prior lines drawn. Irregular superficial wound anterior ankle and stone without purulence consistent with venous stasis ulcer) Peripheral Pulses: 2+: dorsalis-pedis (R), dorsalis-pedis (L) Abdomen: non-tender, soft Male Genitalia: No stevenson Skin: pallor, No rash Neuro/Psych: alert, normal mood/affect, oriented x 3 - Line/s PIV Lines: other (Left forearm), No drainage, No erythema - Time Spent With Patient Time Spent with Patient: greater than 35 minutes (Care coordinated with Dr. Jessica Ayala) Time Spent with Patient: Greater than 35 minutes spent on this patients care, greater than 50% of time spent counseling, educating, and coordinating care regarding the above mentioned plan. ICD10 Worksheet Patient Problems: Problems Problem Status Onset Cellulitis Acute Bradycardia Acute
--- NOTE | 2018-08-09 13:25 | ASMTCMCOM ---
CM Note CM Note Notes: Patient plan of care reviewed in rounds. Chart also reviewed. patient seen in wound care clinic. History of APS report filed in his chart on previous visit. Patient per PT needs skilled care. He has been reluctant in the past and not sure if he will be agreeable. On IV antibiotics for wound. Referrals placed in allscripts. Will attempt to provide him with pamphlets CM to follow. Plan: SNF versus [facility] Date Signed: 08/09/2018 01:25 PM Electronically Signed By:Ronda Herndon RN
--- NOTE | 2018-08-09 15:20 | PDMN ---
Medical Necessity Medical necessity: Per MD and MCG M-70; est los >2 mn for ongoing management and tx of worsening cellulitis secondary to peripheral venous insufficiency s/p OP debridement of wounds and recent fall; requiring surgical consult, ID consult , wound care consult, IV ABX and therapies; Comorbid advanced age
--- NOTE | 2018-08-09 15:53 | HOSPPROG ---
Hospitalist Progress Note Assessment/Plan: 88 yo M with PMH of copd, cad and chronic venous stasis ulcers followed at wound clinic presenting with RLE cellulitis. # RLE cellulitis: Not toxic/septic. Improving. Portal of entry is chronic LE wounds. No e/o deeper infection/abscess per wound care. - IV ancef, ID following - Follow cultures, exam - Wound care - Query whether he would be candidate for long-term suppressive antibiotics # Leukocytosis: Resolved. # Acute hypoxemic resp insufficiency: Requiring 1-2L NC. Has underlying COPD, ILD (no acute flare of either) and lung cancer so this is likely his baseline. Anticipate him needing supplemental O2 at dc. # Deconditioning/unsteady gait: Currently living alone, which seems unsafe - PT/OT # H/o prostate and lung cancer: Followed by [facility], not contributing to acute presentation # CAD: No anginal sxs, cont op meds Code: full Dispo: Switch to inpatient for ongoing need for IV antibiotics, unsafe to dc home. May need SNF. Subjective: Doing well. Right foot pain improved. No fevers, diarrhea. Objective: Vital Signs Temp Pulse Resp BP Pulse Ox 36.5 C 96 16 131/68 H 91 L 08/09/18 12:06 08/09/18 12:06 08/09/18 12:06 08/09/18 12:06 08/09/18 12:06 Laboratory Results 08/09/18 04:42 08/09/18 04:42 08/08/18 08/09/18 08/10/18 05:59 05:59 05:59 Intake Total 400 Balance 400 - Physical Exam Constitutional: no apparent distress, appears nourished, not in pain, other ( hard of hearing) Eyes: PERRL, anicteric sclera, EOMI Ears, Nose, Mouth, Throat: moist mucous membranes, hearing normal, ears appear normal, no oral mucosal ulcers Cardiovascular: regular rate and rhythym, no murmur, rub, or gallop Respiratory: no respiratory distress, no rales or rhonchi, clear to auscultation Gastrointestinal: normoactive bowel sounds, soft, non-tender abdomen, no palpable masses Genitourinary: no bladder fullness, no bladder tenderness, no renal bruits Skin: other (right foot/ankle wrapped with mild erythema extending within boundaries previously drawn) Musculoskeletal: full muscle strength, no muscle tenderness, normal joint ROM Neurologic: AAOx3, sensation intact bilaterally Psychiatric: interacting appropriately, not anxious, not encephalopathic, thought process linear ICD10 Worksheet Patient Problems: Problems Problem Status Onset Cellulitis Acute Bradycardia Acute
[2018-08-09] MEDS: FINASTERIDE 5 MG TAB PO SCH (20:30)
[2018-08-09] MEDS: LATANOPROST 0.005% 2.5 ML OPHT DROPS EACHEYE SCH (20:31)
[2018-08-09] MEDS ORDERED: CALCIUM CARBONATE 500 MG CHEWABLE TAB PO PRN (20:52)
--- NOTE | 2018-08-10 09:34 | PCMIDPN ---
Assessment/Plan: # Right lower extremity cellulitis: minimal residual erythema . Portal of entry venous stasis ulcer --okay to dc on PO Keflex 500mg PO TID x 1 week --continue wound care as outpatient # venous insufficiency with chronic lower extremity wounds: Dr. Ayala just debrided wounds. Medication Cefazolin 1 g IV Q 8h, #2 Micro 08/08 blood cultures (2) NGTD Subjective: feels well slept well last night minimal R leg pain wants to go home Objective: Vital Signs Temp Pulse Resp BP Pulse Ox 36.6 C 78 18 139/84 H 96 08/10/18 09:01 08/10/18 09:01 08/10/18 09:01 08/10/18 09:01 08/10/18 09:01 Laboratory Results 08/09/18 04:42 08/09/18 04:42 08/09/18 08/10/18 08/11/18 05:59 05:59 05:59 Intake Total 1500 100 Balance 1500 100 gen: elderly male NAD, cooperative HEENT: MMM no thrush Neck supple Pulm: breathing easy RLE : irregular wound R ankle, anterior mid stone with large about serosang discharge, significant periwound inflammation but not clearly cellulitic. Mid to upper stone - erythema has resolved. Minimal LE edema, scaly dry skin. For wound measurement see wound care note, patient examined w wound care team. Compression on LLE SKAGWAY, AxOx4 - Time Spent With Patient Time Spent with Patient: greater than 35 minutes Time Spent with Patient: Greater than 35 minutes spent on this patients care, greater than 50% of time spent counseling, educating, and coordinating care regarding the above mentioned plan. ICD10 Worksheet Patient Problems: Problems Problem Status Onset Cellulitis Acute Bradycardia Acute
[2018-08-10] MEDS: ENOXAPARIN 40 MG/0.4 ML SYR SC SCH (09:35)
[2018-08-10] MEDS: BRIMONIDINE/TIMOLOL 5 ML OPHT.BTL LEFTEYE SCH (09:37)
[2018-08-10] MEDS: SENNOSIDES/DOCUSATE SODIUM TAB PO SCH ×2 (09:39→20:53)
--- NOTE | 2018-08-10 10:42 | SOAPPROG ---
SOAP Progress Note Assessment/Plan: Assessment: 88 year old w history of venous insufficiency and fall admitted yesterday for worsening cellulitus. Wound care F/U wound healing center ABX per ID S: Erythema and pain improved O: From photo, erythema improved. overall wound appears better. Will still need diligent wound care to heal Plan: 08/09/18 08:55 08/09/18 09:02 08/10/18 10:40 Objective: Vital Signs Temp Pulse Resp BP Pulse Ox 36.6 C 78 18 139/84 H 96 08/10/18 09:01 08/10/18 09:01 08/10/18 09:01 08/10/18 09:01 08/10/18 09:01 Laboratory Results 08/09/18 04:42 08/09/18 04:42 08/09/18 08/10/18 08/11/18 05:59 05:59 05:59 Intake Total 1500 100 Balance 1500 100 ICD10 Worksheet Patient Problems: Problems Problem Status Onset Cellulitis Acute Bradycardia Acute
--- NOTE | 2018-08-10 11:12 | WOCRNPDOC ---
WOCRN Advanced Assessment Note - Skin Integrity Problem, Advanced Assess Right Calf Dressing Type: Coban, Kerlix, Super Absorbant Dressing Description: Intact, Shadowed Exudate Amount: Moderate Exudate Color: Yellow, Red Exudate Characteristic(s): Serosanguinous Integumentary Issue Intervention: Dressing Changed Nickie Wound Tissue: Ecchymotic, Hemosiderin Staining Nickie Wound Swelling: Mild Wound Bed Color: Purple, Red Wound Bed Constitution: Granulation Tissue (20%), Smooth Tissue (30%), Red/[place] - Non Granular Tissue (50%) Wound Edges: Attached Site Measurement - Head-to-Toe Length X Width X Depth (cm): 9x6.5x0.3 Skin Integrity Problem Comment: Wound examined with Dr. Yi. Dressing saturated with saline for removal and then wound cleansed with saline and gauze. Some necrotic/purulence removed with dressing. Wound looks overall clean , no slough/eschar noted in wound bed. No sting skin prep used periwound. Aquacel Ag placed in wound bed, covered with mepilex non-bordered foam, wrapped with kerlix and secured with coban. No compression applied. Student RN in room for assessment. Patient has a scheduled appointment with the [facility] for next Monday. Instructed to follow up with them sooner if the dressing needs to be changed pending discharge today or tomorrow. Wound care will round again next week if the patient is still hospitalized.
--- NOTE | 2018-08-10 14:59 | ASMTCMCOM ---
CM Note CM Note Notes: Spoke with pt's Dominga who does not live in their home at this time because of her own health issues. She and son Ludwin are in agreement pt would benefit from SNF rehab before going home. Ludwin is planning on moving into his father's house which needs some organizing and cleaning prior to pt coming home. Spoke with pt at length about a SNF rehab stay - he is concerned about costs, etc.and would prefer to go home. Hospitalist will talk with him again about his need for a SNF stay. PT/OT continue to recommend SNF d/c as well. At this time pt still will not commit to a SNF d/c - his family will be here tonight and hopefully will encourage him that it's the safest and best option for him at this time. His feels a [place] SNF would be the easiest for family to get to for visits. Date Signed: 08/10/2018 02:58 PM Electronically Signed By:SHIREEN Nice
--- NOTE | 2018-08-10 16:38 | HOSPPROG ---
Hospitalist Progress Note Assessment/Plan: 88 yo M with PMH of copd, cad and chronic venous stasis ulcers followed at wound clinic presenting with RLE cellulitis. # RLE cellulitis: Not toxic/septic. Portal of entry is chronic LE wounds. No e/ o deeper infection/abscess - IV ancef, switch to keflex at dc - Follow cultures, exam # Chronic venous insufficiency - Dr Ayala debrided lower extremity wounds 08/08 # Deconditioning/unsteady gait: Currently living alone, very unsteady on feet per therapy services - PT/OT # Leukocytosis: Resolved. # Acute hypoxemic resp insufficiency: Requiring 1-2L NC. Has underlying COPD, ILD (no acute flare of either) and lung cancer so this is likely his baseline. Anticipate him needing supplemental O2 at dc. # H/o prostate and lung cancer: Followed by [facility], not contributing to acute presentation # CAD: No anginal sxs, cont op meds Code: full Dispo: Continue inpatient, unsafe to dc to home at present as he lives independently, very high fall risk. Working on getting SNF if patient agreeable vs home with home health. Subjective: Feeling well, had good night. Some right leg pain but overall improved. No fevers. No diarrhea or itching. Objective: Vital Signs Temp Pulse Resp BP Pulse Ox 36.6 C 79 18 116/68 93 08/10/18 16:06 08/10/18 16:06 08/10/18 16:06 08/10/18 16:06 08/10/18 16:06 Laboratory Results 08/09/18 04:42 08/09/18 04:42 08/09/18 08/10/18 08/11/18 05:59 05:59 05:59 Intake Total 1500 100 Balance 1500 100 - Physical Exam Constitutional: no apparent distress, appears nourished, not in pain Eyes: PERRL, anicteric sclera, EOMI Ears, Nose, Mouth, Throat: moist mucous membranes, hearing normal, ears appear normal, no oral mucosal ulcers Cardiovascular: regular rate and rhythym, no murmur, rub, or gallop Respiratory: no respiratory distress, no rales or rhonchi, clear to auscultation Gastrointestinal: normoactive bowel sounds, soft, non-tender abdomen, no palpable masses Genitourinary: no bladder fullness, no bladder tenderness, no renal bruits Skin: other (chronic venous stasis of RLE with serous drainage from anterior wounds) Musculoskeletal: full muscle strength, no muscle tenderness, normal joint ROM Neurologic: AAOx3, sensation intact bilaterally Psychiatric: interacting appropriately, not anxious, not encephalopathic, thought process linear ICD10 Worksheet Patient Problems: Problems Problem Status Onset Cellulitis Acute Bradycardia Acute
[2018-08-10] MEDS ORDERED: MELATONIN 3 MG TAB PO PRN (20:24)
[2018-08-10] MEDS: FINASTERIDE 5 MG TAB PO SCH (20:53)
[2018-08-10] MEDS: LATANOPROST 0.005% 2.5 ML OPHT DROPS EACHEYE SCH (20:54)
[2018-08-11] MEDS: ENOXAPARIN 40 MG/0.4 ML SYR SC SCH (09:15)
[2018-08-11] MEDS: SENNOSIDES/DOCUSATE SODIUM TAB PO SCH (09:25)
[2018-08-11] MEDS: BRIMONIDINE/TIMOLOL 5 ML OPHT.BTL LEFTEYE SCH (09:26)
[2018-08-11 11:07] VITALS: BP 98/57
--- NOTE | 2018-08-11 13:11 | PDIAF ---
- Diagnosis Code Status: Full Code - Medication Management Discharge Medications: electronically signed and located in the Home Medication List. - Orders Services needed: Home Care, Registered Nurse, Physical Therapy, Occupational Therapy Home Care Face to Face: I certify that this patient was under my care and that I had the required [id number] encounter meeting the encounter requirements on the discharge day. My findings support the fact that the patient is homebound as defined in Home Care Face to Face Continued: CMS Chapter 7 Medicare Benefits Manual 30.1.1 , The condition of the patient is such that there exists a normal inability to leave home and consequently, leaving home would require a considerable and taxing effort. Additional Instructions: Please take keflex (cephalexin) 500mg tablet three times daily for 7 more days. I sent this prescription to your pharmacy. We are setting you up with home health resources. Specifically, you will be getting physical and occupational therapy as well as a nurse. [facility] if you continue to have issues with your wounds: You may reach them at [phone] for an appointment and continued management of your wounds. Please call them she to schedule your appointment as they fill up quickly. If before that time you have any issues please follow up with your PCP. Wound care orders: Change dressing to right lower leg Q3D and PRN 1. Cleanse wound with NS and gauze 2. Skin prep periwound 3. Cut pieces of Aquacel Ag and place over wound bed (Available from wound care and in the wound cart) 4. Cover with Mepilex non-bordered foam 5. Secure with kerlix and wrap with coban (no compression). Janet THOMAS - Follow Up Care Current Providers and Referrals: Bethanie Marvin MD [Primary Care Provider] - As per Instructions
--- NOTE | 2018-08-11 13:12 | PDDCSUM ---
Discharge Summary Discharge Summary: Date of Admission: 08/08/2018 Date of Discharge: 08/11/2018 Consultants: infectious disease, wound care Disposition: home with home health PT/OT/scuba instructor Diagnoses: 1. RLE cellulitis, in setting of 2. Chronic lower extremity wounds, related to 3. Chronic venous insufficiency 4. Unsteady gait, deconditioning 5. Acute hypoxemic respiratory insufficiency, resolved 6. H/o prostate and lung cancer 7. CAD 8. COPD/?ILD Brief Hospital Course: 88 yo M with PMH chronic venous stasis ulcers followed closely at wound clinic presented with worsening RLE erythema and weeping consistent with cellulitis. He was treated with IV cefazolin and transitioned to keflex at discharge for 7 more days. He will continue to follow in wound clinic. He was mildly hypoxic intermittently throughout his stay, which I believe is likely chronic given his several chronic lung conditions, however he had good O2 saturations without supplemental O2 at discharge. Of note, therapy services recommended SNF. Patient adamantly declined and instead preferred home therapy services which were set up. He is apparently a hoarder and there are concerns about his safety living independently at home. His son, Ludwin, is planning on moving in with patient and helping clean up his house. Myself as well as our case resolution specialist, therapy services, and nursing had numerous conversations with the patient re: his safety at home but he continually refused SNF. The patient does have decision making capacity. Medications: Follow Up Plan: 1. Continue keflex for 7 more days. 2. Home therapy services. If patient changes his mind, he has been accepted to SNF (per case management) can could go in the next 30 days if he so desires. 3. Ongoing wound care for chronic lower extremity wounds Physical Exam: Vitals reviewed, afebrile. Alert and oriented. Very hard of hearing. RRR, lungs clear, abdomen soft and nt. Right lower leg wrapped with improving erythema within previously drawn borders.
--- NOTE | 2018-08-11 14:51 | ASMTDCNOTE ---
Case Management Discharge Discharge Order Complete? Answers: Yes Patient to Obtain Answers: via Family Medications Transportation Arranged Answers: Family/Friends Transport will Pick (Date 08/11/2018 12:00 AM & Time) Faxed Final Orders Answers: Yes Agency/Facility Transfer Answers: Yes Report Printed & Faxed to Receiving Agency Family Notified Answers: Yes Notes: son Ludwin in room, Dominga called Discharge Comments Notes: This CM spent >45 minutes working with pt and pt's family. Pt is adamant that he will not go to a SNF as recommended as he "needs to get home to pay bills and organize the house". and son have both characterized him as a hoarder. is concerned that if home care agency comes to the home they will deem it uninhabitable, son Ludwin is less concerned and has moved into home to help the patient clean the home and make it safer. Pt admits that his home is too cluttered and disorganized and assigns blame to his family which is "very dysfunctional". Pt is considering going to a SNF for rehab in a week or two after he and son catch up on bills and organize the home a bit, but pt will need PT/OT and RN services in the home until then and will also follow up with wound care clinic. [facility] has accepted and referral sent. Family is requesting they not begin services until Monday. Conferred with hospitalist that pt is indeed decisional and free to refuse SNF at this time. Family provided resources from [employer] regarding hoarding disorder and family encouraged to seek counseling and emotional support around being in a relationship with a "hoarder" and having "OCD" as they have described him and pt has always refused psychiatric treatment. Pt to discharge home now with [facility]. Date Signed: 08/11/2018 02:50 PM Electronically Signed By:Isela Martin
--- NOTE | 2018-08-11 14:52 | ASMTLACE ---
ELIZABETH Length of stay for Answers: 2 days current admission Acuity / Level of Answers: Yes Care: Did the patient have an inpatient admission? Comorbidities - select Answers: Any tumor (including all that apply lymphoma or leukemia) Chronic pulmonary disease Coronary Artery Disease Other Notes: Spinal stenosis; GERD # of Emergency department Answers: 5-8 visits in the last 6 months Social determinants Answers: Mental health diagnosis (anxiety, depression, pers onality disorders, etc.) Score: 19 Date Signed: 08/11/2018 02:51 PM Electronically Signed By:Isela Martin
== END 2018-08-11 15:06 | disposition home health service (06) | DRG 603 ==
LOC: F1N 20:07
PROVIDERS: ADMIT Internal Medicine; ATTEND Internal Medicine
DX: L03.115 Cellulitis of right lower limb (principal); R06.89 Other abnormalities of breathing; I83.018 Varicose veins of right lower extremity with ulcer other part of lower leg; I87.2 Venous insufficiency (chronic) (peripheral); R26.89 Other abnormalities of gait and mobility; I25.10 Atherosclerotic heart disease of native coronary artery without angina pectoris; J44.9 Chronic obstructive pulmonary disease, unspecified; Z85.118 Personal history of other malignant neoplasm of bronchus and lung; Z85.46 Personal history of malignant neoplasm of prostate
CPT/HCPCS: 96374; 97116-GP; 97162-GP; 97166-GO; 97530-GO; G8978-GP-CK; G8979-GP-CJ; G8987-GO-CJ; G8988-GO-CI; J0690; J1650